=== PATIENT | female | born 1935 | race Caucasian/White ===

== ENCOUNTER 2023-05-23 12:23 | Emergency (ER) | payer MEDICARE, SELFPAY ==
[2023-05-23 12:39] VITALS: BP 123/53; PULSE 87; RESP 18; TEMP 36.7; O2SAT 95
--- NOTE | 2023-05-23 12:57 | ED.GENADULT ---
HPI - General Adult General Chief complaint: Upper Respiratory Infection Stated complaint: Cough Source: patient, family and RN notes reviewed History of Present Illness HPI narrative: 88 yo F presents to urgent care with daughters at side. Pt states she has had a dry cough for approximately 1 week. Pt reports some SOB when she's coughing. Denies any chest pain, fevers, chills, vomiting, sore throat, or ear pain. Pt is normally on 2L nc O2. Related Data Home Medications Medication Instructions Recorded Confirmed allopurinol 300 mg tablet 300 mg PO DAILY 05/23/23 05/23/23 atorvastatin 20 mg tablet 20 mg PO DAILY 05/23/23 05/23/23 furosemide 20 mg tablet 40 mg PO DAILY 05/23/23 05/23/23 insulin glargine 100 unit/mL (3 See Protocol subcut DAILY 05/23/23 05/23/23 mL) subcutaneous pen (Lantus Solostar U-100 Insulin) levothyroxine 50 mcg tablet 50 mcg PO DAILY 05/23/23 05/23/23 metformin 1,000 mg tablet 1,000 mg PO BID 05/23/23 05/23/23 metoprolol succinate 50 mg 50 mg PO DAILY 05/23/23 05/23/23 tablet,extended release 24 hr potassium chloride 10 mEq 10 meq PO DAILY 05/23/23 05/23/23 tablet,extended release Allergies Allergy/AdvReac Type Severity Reaction Status Date / Time No Known Allergies Allergy Verified 05/23/23 12:44 Review of Systems Review of Systems: CONSTITUTIONAL: Denies fever, chills, or sweats. EYES: Denies visual changes, redness, or discharge. ENT: Denies otalgia and sore throat CARDIOVASCULAR: Denies chest pain, palpitations, or edema. GASTROINTESTINAL: Denies abdominal pain, nausea, vomiting, or diarrhea. GENITOURINARY: Denies dysuria or hematuria. SKIN: Denies rash or itching. MUSCULOSKELETAL: Denies back pain, joint pain, or myalgia. NEUROLOGIC: Denies headache, numbness, or weakness. Pertinent positives per HPI. PMFSH Comments At the time of my signature, I reviewed and agree with the nursing past medical, surgical, social, and family history. There is no relevant family history pertinent to the patient complaint. Exam Narrative: GENERAL: This is a well-nourished, well-developed patient, in no apparent distress. HEAD: normocephalic, atraumatic. EYES: Sclera clear/white. Vision is grossly intact. EARS: External ears normal, auditory canals clear and without drainage. Hearing grossly intact. NOSE: External nose normal with no obvious nasal discharge, nares without redness, no rhinorrhea. NECK: Neck supple, non-tender without lymphadenopathy, masses or thyromegaly. CARDIOVASCULAR: Regular rate and rhythm without murmurs, gallops, or rubs. RESPIRATORY: Clear to auscultation. Breath sounds equal bilaterally. No wheezes, rales, or rhonchi. SKIN: warm, intact with no suspicious lesions or rash, good texture and turgor. NEURO: awake, alert, and oriented to person, place and time. There were no obvious focal neurologic abnormalities. Course Course Level of Care: Express Care Visit Vital Signs Vital signs: Vital Signs Temperature 98.0 F 05/23/23 12:39 Pulse Rate 87 05/23/23 12:39 Respiratory Rate 18 05/23/23 12:39 Blood Pressure 123/53 L 05/23/23 12:39 Pulse Oximetry 95 05/23/23 12:39 Oxygen Delivery Nasal Cannula 05/23/23 12:39 Oxygen Flow Rate 2 05/23/23 12:39 Temperature 98.0 F 05/23/23 12:39 Pulse Rate 87 05/23/23 12:39 Respiratory Rate 18 05/23/23 12:39 Blood Pressure 123/53 L 05/23/23 12:39 Pulse Oximetry 95 05/23/23 12:39 Oxygen Delivery Nasal Cannula 05/23/23 12:39 Oxygen Flow Rate 2 05/23/23 12:39 Reviewed Medical Decision Making MDM Narrative Medical decision making narrative: Take the antibiotics as directed. Get plenty of fluids. 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 Differential Diagnosis Differential Diagnosis: bronchitis, PNA, URI Vital Signs Vital Signs: Vital Signs Temperature 98.0 F 05/23/23 12:39 Pulse Rate 87
== END 2023-05-23 13:02 | disposition home or self-care (01) ==
PROVIDERS: Emergency Provider Nurse Practitioner Family; PCP Family Medicine
DX: R05.1 Acute cough (principal); J44.9 Chronic obstructive pulmonary disease, unspecified; E11.9 Type 2 diabetes mellitus without complications
CPT/HCPCS: 99213; G0463